=== PATIENT | female | born 1935 | race Hispanic/Latino ===

== ENCOUNTER 2023-05-23 16:58 | Inpatient (IN) | payer MEDICARE ==
[~2023-05-23] VITALS: Ht 152.4 cm; Wt 65.8 kg
[~2023-05-23 16:58] MED LIST: CARVEDILOL12.5 MG PO; FEROSUL325 MG PO; FUROSEMIDE20 MG PO; HYDROCHLOROTH12.5 MG PO; LEVOTHYROXINE50 MCG PO; LOSARTAN POTASS25 MG PO; MULTI-VITAMIN1 EACH PO; NIFEDIPINE ER30 M1 PO; PANTOPRAZOLE SO40 MG PO; POTASSIUM CHLO10 ME1 PO; SIMVASTATIN20 MG PO; SODIUM CHLORI1000 M2 PO
[2023-05-23 17:26] LABS: BASOPHILS % 0.2 % (0.0-1.0); EOSINOPHILS # (AUTO) 0.1 (0.0-0.4); EOSINOPHILS % 0.4 % (0.0-6.0); HEMATOCRIT 35.5 % (34.2-44.1); LYMPHOCYTES # (AUTO) 0.7 (1.0-3.2); LYMPHOCYTES % 4.5 % (18.0-39.1); MEAN CORPUSCULAR HEMOGLOBIN 28.9 pg (28-32); MEAN CORPUSCULAR HGB CONC 33.8 g/dL (31-35); MEAN CORPUSCULAR VOLUME 85.5 fL (81-99); MONOCYTES # (AUTO) 0.9 (0.2-0.8); MONOCYTES % 6.4 % (4.4-11.3); NEUTROPHILS # (AUTO) 12.9 (2.1-6.9); NEUTROPHILS % 88.2 % (38.7-80.0); PLATELET COUNT 242 x10e3/uL (140-360); RED BLOOD COUNT 4.15 x10e6/uL (3.6-5.1)
[2023-05-23 17:44] LABS: ALBUMIN 3.6 g/dL (3.5-5.0); ALBUMIN/GLOBULIN RATIO 0.9 (0.8-2.0); ANION GAP 19.7 mmol/L (8-16); BILIRUBIN,TOTAL 1.4 mg/dL (0.2-1.2); CALCIUM 9.6 mg/dL (8.4-10.2); CREATININE, SERUM 1.51 mg/dL (0.57-1.11); POTASSIUM 4.7 mmol/L (3.5-5.1); TOTAL PROTEIN 7.4 g/dL (6.5-8.1)
[2023-05-23 18:14] LABS: INFLUENZAE A&B ANTIGEN (RAPID) NEGATIVE (NEGATIVE); RESPIRATORY SYNC. VIRUS NEGATIVE (NEGATIVE)
[2023-05-23] MEDS: Doxycycline IV 100 MG in SODIUM CHLORIDE 0.9% 100 ML IV SCH (18:53)
[2023-05-23 19:30] VITALS: PULSE 72; RESP 20; O2SAT 96
[2023-05-23 19:55] LABS: BILIRUBIN,URINE NEGATIVE (NEGATIVE); CLARITY,URINE SL CLOUDY (CLEAR); COLOR,URINE YELLOW (YELLOW); GLUCOSE, URINE NEGATIVE (NEGATIVE); KETONES,URINE NEGATIVE (NEGATIVE); LEUKOCYTE ESTERASE ,URINE MODERATE (NEGATIVE); NITRITE,URINE NEGATIVE (NEGATIVE); PH,URINE 5.5 (5 - 7); PROTEIN,URINE DIPSTICK 1+ (NEGATIVE); URINE UROBILINOGEN 0.2 mg/dL (0.2 - 1)
[2023-05-23 20:08] LABS: AMORPHOUS SEDIMENT,URINE MODERATE (FEW); BACTERIA,URINE MODERATE /HPF; EPITHELIAL CELLS,URINE FEW /LPF
[2023-05-23] MEDS ORDERED: GUAIFENESIN/DEXTROMETHORPHAN LIQD 5 ML UDC PO PRN (20:15)
[2023-05-23] MEDS ORDERED: MAGNESIUM/ALUMINUM/SIMETHICONE 30 ML UDC PO PRN (20:15)
[2023-05-23] MEDS ORDERED: ONDANSETRON HCL INJ 2MG/ML 2ML 2 MG/ML VIAL IV PRN (20:15)
[2023-05-23] MEDS ORDERED: IPRATROPIUM BROMIDE 0.02% 2.5 ML NEB NEB PRN (20:15)
[2023-05-23 22:05] VITALS: BP 126/65; PULSE 73; RESP 17; TEMP 98.8; O2SAT 95
[2023-05-23 23:00] VITALS: BP 126/65; PULSE 73; RESP 17; TEMP 98.8; O2SAT 95
[2023-05-23 23:30] VITALS: BP 126/65; PULSE 73; RESP 17; TEMP 98.8; O2SAT 95
[2023-05-24] VITALS (10 sets, daily range): BP systolic 122–165; BP diastolic 58–73; PULSE 62–81; RESP 18–20; TEMP 97–98.4; O2SAT 93–100
[2023-05-24] MEDS: SIMVASTATIN 20 MG TAB PO SCH (00:15)
[2023-05-24] MEDS: ACETAMINOPHEN 325 MG TAB PO PRN (00:21)
[2023-05-24] MEDS: MELATONIN 3 MG TAB PO PRN (00:21)
[2023-05-24] MEDS ORDERED: AUGMENTIN 500-1 EACH PO (02:31)
[2023-05-24 05:22] LABS: BASOPHILS % 0.3 % (0.0-1.0); EOSINOPHILS # (AUTO) 0.1 (0.0-0.4); EOSINOPHILS % 0.6 % (0.0-6.0); HEMATOCRIT 31.4 % (34.2-44.1); HEMOGLOBIN 10.6 g/dL (12.0-16.0); LYMPHOCYTES # (AUTO) 0.7 (1.0-3.2); LYMPHOCYTES % 5.8 % (18.0-39.1); MEAN CORPUSCULAR HEMOGLOBIN 28.8 pg (28-32); MEAN CORPUSCULAR HGB CONC 33.8 g/dL (31-35); MEAN CORPUSCULAR VOLUME 85.3 fL (81-99); MONOCYTES % 8.5 % (4.4-11.3); NEUTROPHILS # (AUTO) 9.5 (2.1-6.9); NEUTROPHILS % 84.5 % (38.7-80.0); PLATELET COUNT 257 x10e3/uL (140-360); RED BLOOD COUNT 3.68 x10e6/uL (3.6-5.1); RED CELL DISTRIBUTION WIDTH 13.1 % (11.7-14.4); WHITE BLOOD COUNT 11.23 x10e3/uL (4.8-10.8)
[2023-05-24] MEDS: LEVOTHYROXINE SODIUM 50 MCG TAB PO SCH (05:52)
[2023-05-24 06:08] LABS: CALCIUM 8.8 mg/dL (8.4-10.2); CREATININE, SERUM 1.24 mg/dL (0.57-1.11)
[2023-05-24] MEDS ORDERED: MULTIVITAMINS/MINERALS TAB PO SCH (09:00)
[2023-05-24] MEDS: MULTIVITAMINS/MINERALS TAB PO SCH (10:19)
[2023-05-24] MEDS: FERROUS SULFATE 325 MG TAB PO SCH (10:19)
[2023-05-24] MEDS: POTASSIUM CHLORIDE 10MEQ EA PO SCH (10:19)
[2023-05-24] MEDS: SODIUM CHLORIDE 1 GM TAB PO SCH (10:19)
[2023-05-24] MEDS: FUROSEMIDE 20 MG TAB PO SCH (10:20)
[2023-05-24] MEDS: PANTOPRAZOLE SOD 40 MG TABEC PO SCH (10:20)
[2023-05-24] MEDS: CARVEDILOL 12.5 MG TAB PO SCH (10:20)
[2023-05-24] MEDS ORDERED: SODIUM CHLORIDE 0.9% 250ML 250 ML ONE (10:25)
[2023-05-24] MEDS: LACTATED RINGER'S 1,000 ML INJ ONE (17:16)
[2023-05-25] VITALS (10 sets, daily range): BP systolic 149–192; BP diastolic 52–77; PULSE 61–70; RESP 17–18; TEMP 97.6–98.4; O2SAT 97–100
[2023-05-25 05:41] LABS: BASOPHILS % 0.3 % (0.0-1.0); EOSINOPHILS # (AUTO) 0.2 (0.0-0.4); EOSINOPHILS % 2.5 % (0.0-6.0); HEMATOCRIT 36.5 % (34.2-44.1); HEMOGLOBIN 11.3 g/dL (12.0-16.0); LYMPHOCYTES # (AUTO) 0.8 (1.0-3.2); LYMPHOCYTES % 9.1 % (18.0-39.1); MEAN CORPUSCULAR HEMOGLOBIN 27.7 pg (28-32); MEAN CORPUSCULAR VOLUME 89.5 fL (81-99); MONOCYTES % 10.9 % (4.4-11.3); NEUTROPHILS # (AUTO) 6.7 (2.1-6.9); PLATELET COUNT 281 x10e3/uL (140-360); RED BLOOD COUNT 4.08 x10e6/uL (3.6-5.1); RED CELL DISTRIBUTION WIDTH 13.3 % (11.7-14.4); WHITE BLOOD COUNT 8.77 x10e3/uL (4.8-10.8)
[2023-05-25 06:18] LABS: ANION GAP 11.9 mmol/L (8-16); CALCIUM 8.7 mg/dL (8.4-10.2); CREATININE, SERUM 0.78 mg/dL (0.57-1.11); POTASSIUM 3.9 mmol/L (3.5-5.1)
[2023-05-25] MEDS ORDERED: FUROSEMIDE INJ 10 MG/ML 4 ML VIAL ONE (11:53)
[2023-05-25] MEDS: FUROSEMIDE INJ 10 MG/ML 4 ML VIAL IV ONE (11:54)
[2023-05-25] MEDS ORDERED: ONDANSETRON HCL 4 MG ORAL DISINTEGRATING TAB PO PRN (14:00)
[2023-05-25] MEDS: HYDRALAZINE HCL 20 MG/ML VIAL IV PRN (15:50)
[2023-05-25] MEDS ORDERED: AMLODIPINE BESYLATE 5 MG TAB ONE (17:52)
[2023-05-25] MEDS: AMLODIPINE BESYLATE 5 MG TAB PO ONE (18:00)
[2023-05-26] VITALS (7 sets, daily range): BP systolic 103–154; BP diastolic 44–68; PULSE 62–90; RESP 18–20; TEMP 97.1–98.6; O2SAT 97–100
[2023-05-26 07:59] LABS: ANION GAP 15.6 mmol/L (8-16); CALCIUM 8.5 mg/dL (8.4-10.2); CREATININE, SERUM 0.74 mg/dL (0.57-1.11); POTASSIUM 3.6 mmol/L (3.5-5.1)
[2023-05-26] MEDS: AMLODIPINE BESYLATE 5 MG TAB PO SCH (09:51)
[2023-05-26] MEDS: FUROSEMIDE INJ 10 MG/ML 4 ML VIAL IV SCH (09:51)
[2023-05-26] MEDS ORDERED: AMLODIPINE BESYLATE 5 MG TAB ONE (09:52)
[2023-05-26] MEDS ORDERED: FUROSEMIDE INJ 10 MG/ML 4 ML VIAL ONE (09:52)
[2023-05-27] VITALS (8 sets, daily range): BP systolic 122–165; BP diastolic 56–74; PULSE 58–86; RESP 16–20; TEMP 97–99.1; O2SAT 96–100
[2023-05-27 08:27] LABS: ANION GAP 14.7 mmol/L (8-16); CREATININE, SERUM 0.74 mg/dL (0.57-1.11); MAGNESIUM 1.8 MG/DL (1.3-2.1); POTASSIUM 3.7 mmol/L (3.5-5.1)
[2023-05-27] MEDS ORDERED: FUROSEMIDE INJ 10 MG/ML 4 ML VIAL ONE (09:04)
[2023-05-27] MEDS: DOCUSATE SODIUM 100 MG CAP PO PRN (11:19)
[2023-05-27] MEDS ORDERED: AMLODIPINE BESYLATE 5 MG TAB ONE (11:26)
[2023-05-28] VITALS (11 sets, daily range): BP systolic 132–159; BP diastolic 51–92; PULSE 54–82; RESP 17–20; TEMP 97.8–98.4; O2SAT 92–100
[2023-05-28] MEDS ORDERED: MULTIVITAMINS/MINERALS TAB ONE (10:18)
[2023-05-28] MEDS ORDERED: AMLODIPINE BESYLATE 5 MG TAB ONE (10:18)
[2023-05-28] MEDS ORDERED: SODIUM CHLORIDE 0.9% INJ 100 ML BAG ONE (10:18)
[2023-05-28] MEDS ORDERED: CEFEPIME HCL 1 GM VIAL ONE (10:18)
[2023-05-28] MEDS ORDERED: Doxycycline IV 100 MG Vial IV ONE (10:18)
[2023-05-28] MEDS ORDERED: SIMVASTATIN 20 MG TAB ONE (10:18)
[2023-05-28] MEDS ORDERED: Sodium Chloride 0.9% 50ML Bag ONE (10:18)
[2023-05-28] MEDS ORDERED: CARVEDILOL 12.5 MG TAB ONE (10:18)
[2023-05-28] MEDS ORDERED: LEVOTHYROXINE SODIUM 50 MCG TAB ONE (10:18)
[2023-05-28] MEDS ORDERED: FERROUS SULFATE 325 MG TAB ONE (10:18)
[2023-05-28] MEDS ORDERED: PANTOPRAZOLE SOD 40 MG TABEC ONE (10:18)
[2023-05-28] MEDS ORDERED: SODIUM CHLORIDE 1 GM TAB ONE (10:18)
[2023-05-28] MEDS ORDERED: FUROSEMIDE INJ 10 MG/ML 4 ML VIAL ONE (10:18)
[2023-05-28] MEDS ORDERED: SIMVASTATIN20 MG PO (12:15)
[2023-05-28] MEDS ORDERED: LASIX20 MG PO (12:15)
[2023-05-28] MEDS ORDERED: AUGMENTIN 500-1 EACH PO (12:15)
[2023-05-28] MEDS: POTASSIUM CHLORIDE 20 MEQ TAB CR PO ONE (15:19)
[2023-05-29] VITALS: BP 143/60; PULSE 56; RESP 17; TEMP 97.9; O2SAT 100
[2023-05-29 04:00] VITALS: BP 155/58; PULSE 61; RESP 17; TEMP 98.2; O2SAT 100
[2023-05-29] MEDS ORDERED: FUROSEMIDE INJ 10 MG/ML 4 ML VIAL ONE ×2 (08:00→09:09)
[2023-05-29] MEDS ORDERED: AMLODIPINE BESYLATE 5 MG TAB ONE ×2 (08:00→09:09)
[2023-05-29] MEDS ORDERED: Doxycycline IV 100 MG Vial IV ONE (09:09)
[2023-05-29] MEDS ORDERED: SODIUM CHLORIDE 1 GM TAB ONE (09:09)
[2023-05-29] MEDS ORDERED: FERROUS SULFATE 325 MG TAB ONE (09:09)
[2023-05-29] MEDS ORDERED: SODIUM CHLORIDE 0.9% INJ 100 ML BAG ONE (09:09)
[2023-05-29] MEDS ORDERED: CEFEPIME HCL 1 GM VIAL ONE (09:09)
[2023-05-29] MEDS ORDERED: CARVEDILOL 12.5 MG TAB ONE (09:09)
[2023-05-29] MEDS ORDERED: Sodium Chloride 0.9% 50ML Bag ONE (09:09)
[2023-05-29] MEDS ORDERED: PANTOPRAZOLE SOD 40 MG TABEC ONE (09:09)
[2023-05-29] MEDS ORDERED: MULTIVITAMINS/MINERALS TAB ONE (09:09)
[2023-05-29] MEDS ORDERED: SIMVASTATIN 20 MG TAB ONE (09:09)
[2023-05-29] MEDS ORDERED: LEVOTHYROXINE SODIUM 50 MCG TAB ONE (09:09)
[2023-05-29 09:38] VITALS: BP 164/61; PULSE 61; RESP 21; TEMP 98.2; O2SAT 100
[2023-05-29 11:13] VITALS: PULSE 68; RESP 18; O2SAT 91
[2023-05-29 12:21] VITALS: BP 128/59; PULSE 57; RESP 19; TEMP 98.4; O2SAT 100
[2023-05-29] MEDS ORDERED: DOXYCYCLINE HYCLATE TABLET 100 MG TAB PO SCH (18:00)
[2023-05-30] MEDS ORDERED: FUROSEMIDE 40 MG TAB PO SCH (09:00)
== END 2023-05-29 16:01 | disposition home health service (06) | DRG 177 ==
LOC: ER 17:10 → ERHOLD 18:07 → MED/SURG3 21:09 → OBSVTOIN 05-24 11:12
PROVIDERS: ADMIT Internal Medicine; ATTEND Internal Medicine
DX: J69.0 Pneumonitis due to inhalation of food and vomit (principal); I50.33 Acute on chronic diastolic (congestive) heart failure; N17.9 Acute kidney failure, unspecified; N39.0 Urinary tract infection, site not specified; E87.1 Hypo-osmolality and hyponatremia; E03.9 Hypothyroidism, unspecified; K21.9 Gastro-esophageal reflux disease without esophagitis; E78.5 Hyperlipidemia, unspecified; M19.90 Unspecified osteoarthritis, unspecified site; Z87.891 Personal history of nicotine dependence; S00.83XD Contusion of other part of head, subsequent encounter; F03.90 Unspecified dementia, unspecified severity, without behavioral disturbance, psychotic disturbance, mood disturbance, and anxiety; Z87.440 Personal history of urinary (tract) infections; Z79.890 Hormone replacement therapy; Z11.52 Encounter for screening for COVID-19; J45.909 Unspecified asthma, uncomplicated; I11.0 Hypertensive heart disease with heart failure
CPT/HCPCS: 36415; 71045; 76604; 76770; 80048; 80053; 81001; 83605; 83735; 83880; 84484; 85025; 87040; 87086; 87400; 87420; 93005; 94799; 99284; G0378; J0360; J0692; J0696; J1940; J7050; U0002

== ENCOUNTER 2024-09-23 12:22 | Inpatient (IN) | payer MEDICARE ==
[2024-09-23] VITALS (7 sets, daily range): BP systolic 132–155; BP diastolic 54–64; PULSE 91–96; RESP 16–18; TEMP 97.6–99.6; O2SAT 98–100
[~2024-09-23] VITALS: Ht 152.4 cm; Wt 65.8 kg
[~2024-09-23 12:22] MED LIST changes: +AUGMENTIN 500-1 EACH PO; +LASIX20 MG PO
[2024-09-23] MEDS ORDERED: HYOSCYAMINE SULFATE 0.5 MG/ML INJ ONE (12:55)
[2024-09-23 13:36] LABS: BASOPHILS % 0.0 % (0.0-1.0); EOSINOPHILS % 0.0 % (0.0-6.0); LYMPHOCYTES % 7.3 % (18.0-39.1); MONOCYTES % 2.1 % (4.4-11.3); NEUTROPHILS % 90.0 % (38.7-80.0); RED CELL DISTRIBUTION WIDTH 15.7 % (11.7-14.4)
[2024-09-23 13:53] LABS: INR 1.04
[2024-09-23] MEDS: SODIUM CHLORIDE 0.9% 1000ML 1,000 ML IV ONE (13:59)
[2024-09-23 14:02] LABS: EST GLOMERULAR FILTRATION RATE 45.0 ML/MIN (>=60)
[2024-09-23] MEDS ORDERED: IOPAMIDOL 370 MG/ML 100 ML INFUS..BTL INJ ONE (14:08)
[2024-09-23] MEDS ORDERED: SODIUM CHLORIDE 0.9% 100 ML ONE (14:08)
[2024-09-23 15:18] LABS: LEUKOCYTE ESTERASE ,URINE NEGATIVE (NEGATIVE); PROTEIN,URINE DIPSTICK NEGATIVE (NEGATIVE); URINE UROBILINOGEN 0.2 mg/dL (0.2 - 1)
[2024-09-23] MEDS: SODIUM CHLORIDE 0.9% 250ML 250 ML IV ONE (15:32)
[2024-09-23] MEDS: SODIUM CHLORIDE 0.9% 1000ML 1,000 ML IV SCH (17:20)
[2024-09-23] MEDS: SODIUM CHLORIDE 0.9% 250ML 250 ML ONE ×2 (17:21→23:28)
[2024-09-24] VITALS (43 sets, daily range): BP systolic 74–166; BP diastolic 45–103; PULSE 78–127; RESP 13–24; TEMP 97.4–99.3; O2SAT 94–100
[2024-09-24 00:30] LABS: % IRON SATURATION 21 % (15-50)
[2024-09-24 05:33] LABS: BASOPHILS % 0.2 % (0.0-1.0); EOSINOPHILS % 0.0 % (0.0-6.0); LYMPHOCYTES % 9.3 % (18.0-39.1); MONOCYTES % 9.3 % (4.4-11.3); NEUTROPHILS % 79.7 % (38.7-80.0); RED CELL DISTRIBUTION WIDTH 14.6 % (11.7-14.4)
[2024-09-24 06:03] LABS: EST GLOMERULAR FILTRATION RATE 65.0 ML/MIN (>=60)
[2024-09-24] MEDS: NOREPINEPHRINE 8 MG/D5W 250 ML 250 ML ONE (08:20)
[2024-09-24 08:51] LABS: BASOPHILS % 0.1 % (0.0-1.0); EOSINOPHILS % 0.0 % (0.0-6.0); LYMPHOCYTES % 9.9 % (18.0-39.1); MONOCYTES % 6.9 % (4.4-11.3); NEUTROPHILS % 82.2 % (38.7-80.0); RED CELL DISTRIBUTION WIDTH 14.8 % (11.7-14.4)
[2024-09-24] MEDS: SODIUM CHLORIDE 0.9% 250ML 250 ML IV ONE ×2 (11:00→23:47)
[2024-09-24] MEDS ORDERED: OCTREOTIDE ACETATE 0.05 MG in SODIUM CHLORIDE 0.9% 250ML 250 ML IV SCH (12:30)
[2024-09-24] MEDS ORDERED: SODIUM CHLORIDE 0.9% IV SCH (12:30)
[2024-09-24] MEDS ORDERED: OCTREOTIDE ACETATE 0.05 MG/ML AMP IV SCH (12:30)
[2024-09-24] MEDS ORDERED: OCTREOTIDE ACETATE IV SCH (12:30)
[2024-09-24] MEDS: CYANOCOBALAMIN INJ 1,000 MCG/ML VIAL IM ONE (12:37)
[2024-09-24] MEDS: OCTREOTIDE ACETATE 0.05 MG/ML AMP IV ONE (14:15)
[2024-09-24] MEDS: OCTREOTIDE ACETATE 500 MCG in SODIUM CHLORIDE 0.9% 250ML 250 ML IV SCH (14:27)
[2024-09-24 17:16] LABS: BASOPHILS % 0.1 % (0.0-1.0); EOSINOPHILS % 0.0 % (0.0-6.0); LYMPHOCYTES % 4.4 % (18.0-39.1); MONOCYTES % 3.6 % (4.4-11.3); NEUTROPHILS % 91.2 % (38.7-80.0); RED CELL DISTRIBUTION WIDTH 15.3 % (11.7-14.4)
[2024-09-24 17:29] LABS: INR 1.3
[2024-09-24] MEDS: SIMVASTATIN 20 MG TAB PO SCH (21:00)
[2024-09-25] VITALS (54 sets, daily range): BP systolic 117–204; BP diastolic 48–136; PULSE 74–97; RESP 14–27; TEMP 97.7–98.9; O2SAT 96–100
[2024-09-25] MEDS: ACETAMINOPHEN 325 MG TAB PO PRN (02:00)
[2024-09-25 03:42] LABS: BASOPHILS % 0.1 % (0.0-1.0); EOSINOPHILS % 0.0 % (0.0-6.0); LYMPHOCYTES % 5.8 % (18.0-39.1); MONOCYTES % 6.6 % (4.4-11.3); NEUTROPHILS % 86.6 % (38.7-80.0); RED CELL DISTRIBUTION WIDTH 14.6 % (11.7-14.4)
[2024-09-25] MEDS: SODIUM CHLORIDE 0.9% 250ML 250 ML IV PRN (03:49)
[2024-09-25] MEDS: LEVOTHYROXINE SODIUM 50 MCG TAB PO SCH (06:02)
[2024-09-25] MEDS: LOSARTAN POTASSIUM 100 MG TAB PO SCH (06:46)
[2024-09-25] MEDS: CARVEDILOL 12.5 MG TAB PO SCH (06:47)
[2024-09-25] MEDS: FUROSEMIDE INJ 10 MG/ML 2 ML VIAL IV PRN (07:00)
[2024-09-25 07:33] LABS: BASOPHILS % 0.1 % (0.0-1.0); EOSINOPHILS % 0.0 % (0.0-6.0); LYMPHOCYTES % 6.4 % (18.0-39.1); MONOCYTES % 7.1 % (4.4-11.3); NEUTROPHILS % 85.7 % (38.7-80.0); RED CELL DISTRIBUTION WIDTH 15.1 % (11.7-14.4)
[2024-09-25 08:02] LABS: EST GLOMERULAR FILTRATION RATE 44.0 ML/MIN (>=60)
[2024-09-25] MEDS: CYANOCOBALAMIN INJ 1,000 MCG/ML VIAL IM SCH (09:34)
[2024-09-25] MEDS ORDERED: PHYTONADIONE 10 MG/ML AMP IV ONE (11:30)
[2024-09-25] MEDS: PHYTONADIONE 10MG/ML INJ 20 MG in Sodium Chloride 0.9% 50ML 50 ML IV ONE (12:05)
[2024-09-25] MEDS: TRANEXAMIC ACID IV SCH (13:49)
[2024-09-25] MEDS: SODIUM CHLORIDE 0.9% IV SCH (13:49)
[2024-09-25 14:29] LABS: BASOPHILS % 0.1 % (0.0-1.0); EOSINOPHILS % 0.1 % (0.0-6.0); LYMPHOCYTES % 7.0 % (18.0-39.1); MONOCYTES % 7.8 % (4.4-11.3); NEUTROPHILS % 84.3 % (38.7-80.0); RED CELL DISTRIBUTION WIDTH 15.1 % (11.7-14.4)
[2024-09-25] MEDS: HYDRALAZINE HCL 20 MG/ML VIAL IV PRN (15:54)
[2024-09-25] MEDS ORDERED: TRANEXAMIC ACID 1,000 MG/10 ML ML IV SCH (17:00)
[2024-09-25] MEDS ORDERED: SODIUM CHLORIDE 0.9% 100 ML ONE (19:27)
[2024-09-25] MEDS ORDERED: IOPAMIDOL 370 MG/ML 100 ML INFUS..BTL INJ ONE (19:27)
[2024-09-25 19:59] LABS: INR 1.14
[2024-09-25] MEDS: PHYTONADIONE 10MG/ML INJ 20 MG in SODIUM CHLORIDE 0.9% 100 ML IV ONE (21:21)
[2024-09-25] MEDS: DESMOPRESSIN ACETATE 4 MCG/ML VIAL IV STA (21:52)
[2024-09-26] VITALS (28 sets, daily range): BP systolic 100–170; BP diastolic 40–98; PULSE 71–88; RESP 13–28; TEMP 97.4–98.3; O2SAT 94–100
[2024-09-26] MEDS: CITRATE OF MAGNESIA 300ML BOTTLE PO ONE ×2 (05:17→10:00)
[2024-09-26 06:09] LABS: BASOPHILS % 0.1 % (0.0-1.0); EOSINOPHILS % 0.7 % (0.0-6.0); LYMPHOCYTES % 6.1 % (18.0-39.1); MONOCYTES % 6.5 % (4.4-11.3); NEUTROPHILS % 86.0 % (38.7-80.0); RED CELL DISTRIBUTION WIDTH 15.8 % (11.7-14.4)
[2024-09-26 07:00] LABS: EST GLOMERULAR FILTRATION RATE 68.0 ML/MIN (>=60)
[2024-09-26] MEDS: SODIUM CHLORIDE 0.9% 250ML 250 ML IV ONE (12:15)
[2024-09-26] MEDS ORDERED: DESMOPRESSIN ACETATE 4 MCG/ML VIAL IV STA (12:22)
[2024-09-26] MEDS ORDERED: PROPOFOL IV EMULSION 10 MG/ML 20 ML VIAL ONE (15:17)
[2024-09-26] MEDS ORDERED: LIDOCAINE HCL 2% LOCAL INJ 5 ML SDV VIAL INJ ONE (15:17)
[2024-09-26] MEDS ORDERED: FENTANYL CITRATE/PF 100MCG/2 ML INJ ONE (15:17)
[2024-09-27] VITALS (24 sets, daily range): BP systolic 90–177; BP diastolic 44–135; PULSE 45–106; RESP 14–25; TEMP 97.4–98.4; O2SAT 90–100
[2024-09-27 10:25] LABS: BASOPHILS % 0.1 % (0.0-1.0); EOSINOPHILS % 3.6 % (0.0-6.0); LYMPHOCYTES % 4.8 % (18.0-39.1); MONOCYTES % 7.8 % (4.4-11.3); NEUTROPHILS % 82.8 % (38.7-80.0); RED CELL DISTRIBUTION WIDTH 15.0 % (11.7-14.4)
[2024-09-27] MEDS: TRANEXAMIC ACID IV SCH (10:34)
[2024-09-27] MEDS: SODIUM CHLORIDE 0.9% IV SCH (10:34)
[2024-09-27 10:59] LABS: EOSINOPHILS % (MANUAL) 2 % (0-7); LYMPHOCYTES % (MANUAL) 8 % (19-48); MONOCYTES % (MANUAL) 1 % (3.4-9.0); NEUTROPHILS % (MANUAL) 89 % (40-74)
[2024-09-27 11:00] LABS: PLATELET ESTIMATE SLIGHTLY DECREASED; PLATELET MORPHOLOGY COMMENT NORMAL
[2024-09-27 11:06] LABS: EST GLOMERULAR FILTRATION RATE 85.0 ML/MIN (>=60)
[2024-09-27] MEDS: POTASSIUM CHLORIDE 20MEQ/100ML 200 ML IV ONE (12:20)
[2024-09-27] MEDS: FUROSEMIDE INJ 10 MG/ML 2 ML VIAL IV ONE (12:20)
[2024-09-28] VITALS (25 sets, daily range): BP systolic 114–186; BP diastolic 50–99; PULSE 51–79; RESP 15–22; TEMP 98.1–99; O2SAT 96–100
[2024-09-28] MEDS: FUROSEMIDE INJ 10 MG/ML 2 ML VIAL IV ONE (01:50)
[2024-09-28 06:46] LABS: BASOPHILS % 0.2 % (0.0-1.0); EOSINOPHILS % 4.2 % (0.0-6.0); LYMPHOCYTES % 5.8 % (18.0-39.1); MONOCYTES % 8.7 % (4.4-11.3); NEUTROPHILS % 80.5 % (38.7-80.0); RED CELL DISTRIBUTION WIDTH 14.2 % (11.7-14.4)
[2024-09-28 06:55] LABS: EST GLOMERULAR FILTRATION RATE 86.0 ML/MIN (>=60)
[2024-09-28] MEDS: POTASSIUM CHLORIDE 20 MEQ TAB CR PO STA (09:39)
[2024-09-28] MEDS: POTASSIUM CHLORIDE 20 MEQ TAB CR PO ONE (17:11)
[2024-09-29] VITALS (12 sets, daily range): BP systolic 163–188; BP diastolic 50–65; PULSE 55–62; RESP 16–19; TEMP 97.4–98.6; O2SAT 100
[2024-09-29] MEDS: ONDANSETRON HCL INJ 2MG/ML 2ML 2 MG/ML VIAL IV PRN (01:22)
[2024-09-29 05:38] LABS: BASOPHILS % 0.2 % (0.0-1.0); EOSINOPHILS % 5.1 % (0.0-6.0); LYMPHOCYTES % 5.6 % (18.0-39.1); MONOCYTES % 9.0 % (4.4-11.3); NEUTROPHILS % 79.6 % (38.7-80.0); RED CELL DISTRIBUTION WIDTH 13.8 % (11.7-14.4)
[2024-09-29 06:17] LABS: EST GLOMERULAR FILTRATION RATE 85.0 ML/MIN (>=60)
[2024-09-30] VITALS (8 sets, daily range): BP systolic 108–180; BP diastolic 53–100; PULSE 56–67; RESP 18–21; TEMP 97.1–98.5; O2SAT 98–100
[2024-09-30] MEDS ORDERED: ALBUTEROL SULF 0.083% NEB SOLN 3 ML NEB NEB PRN (07:00)
[2024-09-30 09:57] LABS: BASOPHILS % 0.4 % (0.0-1.0); EOSINOPHILS % 4.4 % (0.0-6.0); LYMPHOCYTES % 5.6 % (18.0-39.1); MONOCYTES % 6.8 % (4.4-11.3); NEUTROPHILS % 82.4 % (38.7-80.0); RED CELL DISTRIBUTION WIDTH 13.7 % (11.7-14.4)
[2024-09-30] MEDS: SODIUM CHLORIDE 0.9% 250ML 250 ML ONE (09:57)
[2024-09-30] MEDS: FUROSEMIDE INJ 10 MG/ML 4 ML VIAL IV ONE (10:01)
[2024-10-01] VITALS (12 sets, daily range): BP systolic 123–172; BP diastolic 52–65; PULSE 53–69; RESP 16–19; TEMP 97.3–98.2; O2SAT 96–100
[2024-10-01] MEDS: FUROSEMIDE INJ 10 MG/ML 4 ML VIAL IV SCH (21:40)
[2024-10-02] VITALS (8 sets, daily range): BP systolic 113–172; BP diastolic 52–58; PULSE 52–65; RESP 18; TEMP 97.4–97.9; O2SAT 86–100
[2024-10-03] VITALS (13 sets, daily range): BP systolic 108–171; BP diastolic 54–60; PULSE 57–73; RESP 18–22; TEMP 97.9–98.4; O2SAT 95–100
[2024-10-03 06:06] LABS: BASOPHILS % 0.5 % (0.0-1.0); EOSINOPHILS % 3.7 % (0.0-6.0); LYMPHOCYTES % 15.7 % (18.0-39.1); MONOCYTES % 9.8 % (4.4-11.3); NEUTROPHILS % 69.8 % (38.7-80.0); RED CELL DISTRIBUTION WIDTH 13.6 % (11.7-14.4)
[2024-10-03 07:00] LABS: EST GLOMERULAR FILTRATION RATE 77.0 ML/MIN (>=60)
[2024-10-03] MEDS: FUROSEMIDE INJ 10 MG/ML 4 ML VIAL IV SCH (10:23)
[2024-10-03] MEDS: POTASSIUM CHLORIDE 20 MEQ TAB CR PO SCH (10:45)
[2024-10-04] VITALS (10 sets, daily range): BP systolic 110–174; BP diastolic 50–78; PULSE 54–74; RESP 17–21; TEMP 97.1–98.8; O2SAT 96–100
[2024-10-04 07:19] LABS: BASOPHILS % 0.2 % (0.0-1.0); EOSINOPHILS % 2.3 % (0.0-6.0); LYMPHOCYTES % 20.1 % (18.0-39.1); MONOCYTES % 9.6 % (4.4-11.3); NEUTROPHILS % 67.4 % (38.7-80.0); RED CELL DISTRIBUTION WIDTH 13.8 % (11.7-14.4)
[2024-10-04 08:17] LABS: EST GLOMERULAR FILTRATION RATE 70.0 ML/MIN (>=60)
[2024-10-05] VITALS (10 sets, daily range): BP systolic 117–164; BP diastolic 55–64; PULSE 54–71; RESP 16–19; TEMP 97.2–98.4; O2SAT 97–98
[2024-10-05 09:32] LABS: BASOPHILS % 0.3 % (0.0-1.0); EOSINOPHILS % 2.5 % (0.0-6.0); LYMPHOCYTES % 16.4 % (18.0-39.1); MONOCYTES % 6.3 % (4.4-11.3); NEUTROPHILS % 74.4 % (38.7-80.0); RED CELL DISTRIBUTION WIDTH 13.9 % (11.7-14.4)
[2024-10-05 09:41] LABS: EST GLOMERULAR FILTRATION RATE 65.0 ML/MIN (>=60)
[2024-10-06] VITALS (7 sets, daily range): BP systolic 70–163; BP diastolic 65–78; PULSE 51–78; RESP 17–19; TEMP 97.6–98.4; O2SAT 96–99
== END 2024-10-06 13:40 | DRG 377 ==
LOC: ER 12:28 → ERHOLD 16:05 → MED/SURG 17:13 → ICU 09-24 07:58 → MED/SURG 09-28 20:07
PROVIDERS: ADMIT Internal Medicine; ATTEND Internal Medicine
PROC: 30233N1 Transfusion of Nonautologous Red Blood Cells into Peripheral Vein, Percutaneous Approach (ICD-10-PCS; principal; 2024-09-23)
PROC: 30233N1 Transfusion of Nonautologous Red Blood Cells into Peripheral Vein, Percutaneous Approach (ICD-10-PCS; 2024-09-23)
PROC: 02HV33Z Insertion of Infusion Device into Superior Vena Cava, Percutaneous Approach (ICD-10-PCS; 2024-09-23)
PROC: B548ZZA Ultrasonography of Superior Vena Cava, Guidance (ICD-10-PCS; 2024-09-23)
PROC: 30233N1 Transfusion of Nonautologous Red Blood Cells into Peripheral Vein, Percutaneous Approach (ICD-10-PCS; 2024-09-24)
PROC: 30233N1 Transfusion of Nonautologous Red Blood Cells into Peripheral Vein, Percutaneous Approach (ICD-10-PCS; 2024-09-24)
PROC: 30233N1 Transfusion of Nonautologous Red Blood Cells into Peripheral Vein, Percutaneous Approach (ICD-10-PCS; 2024-09-24)
PROC: 30233K1 Transfusion of Nonautologous Frozen Plasma into Peripheral Vein, Percutaneous Approach (ICD-10-PCS; 2024-09-24)
PROC: 30233K1 Transfusion of Nonautologous Frozen Plasma into Peripheral Vein, Percutaneous Approach (ICD-10-PCS; 2024-09-25)
PROC: 30233K1 Transfusion of Nonautologous Frozen Plasma into Peripheral Vein, Percutaneous Approach (ICD-10-PCS; 2024-09-25)
PROC: 3E033XZ Introduction of Vasopressor into Peripheral Vein, Percutaneous Approach (ICD-10-PCS; 2024-09-26)
PROC: 0DJD8ZZ Inspection of Lower Intestinal Tract, Via Natural or Artificial Opening Endoscopic (ICD-10-PCS; 2024-09-26)
PROC: 30233N1 Transfusion of Nonautologous Red Blood Cells into Peripheral Vein, Percutaneous Approach (ICD-10-PCS; 2024-09-26)
DX: K57.31 Diverticulosis of large intestine without perforation or abscess with bleeding (principal); I50.31 Acute diastolic (congestive) heart failure; J96.01 Acute respiratory failure with hypoxia; R57.8 Other shock; D62 Acute posthemorrhagic anemia; N17.9 Acute kidney failure, unspecified; J98.11 Atelectasis; I11.0 Hypertensive heart disease with heart failure; E87.8 Other disorders of electrolyte and fluid balance, not elsewhere classified; E78.5 Hyperlipidemia, unspecified; R73.9 Hyperglycemia, unspecified; K21.9 Gastro-esophageal reflux disease without esophagitis; N31.9 Neuromuscular dysfunction of bladder, unspecified; E53.8 Deficiency of other specified B group vitamins; E03.9 Hypothyroidism, unspecified; E87.6 Hypokalemia; R19.7 Diarrhea, unspecified; R53.81 Other malaise; R33.9 Retention of urine, unspecified; D72.829 Elevated white blood cell count, unspecified; R62.7 Adult failure to thrive; Z68.28 Body mass index [BMI] 28.0-28.9, adult; Z71.3 Dietary counseling and surveillance; M19.91 Primary osteoarthritis, unspecified site; Z90.49 Acquired absence of other specified parts of digestive tract; Z87.440 Personal history of urinary (tract) infections; Z93.59 Other cystostomy status; Z79.01 Long term (current) use of anticoagulants
CPT/HCPCS: 36415; 36569; 45378; 70450; 71045; 74174; 80048; 80053; 81001; 82607; 82746; 83540; 83690; 84466; 84484; 85014; 85018; 85025; 85045; 85610; 85730; 86850; 86900; 86920; 93005; 93306; 94799; 99252; 99284; J0360; J1938; J1980; J2003; J2353; J2354; J2405; J2470; J2543; J3420; J3430; J3480; J7030; J7050; P9016; P9017; Q9967

== ENCOUNTER 2024-10-30 20:44 | Inpatient (IN) | payer MEDICARE ==
[~2024-10-30] VITALS: Ht 149.9 cm; Wt 52.2 kg
[2024-10-30 21:08] VITALS: TEMP 98.1
[2024-10-30] MEDS: SODIUM CHLORIDE 0.9% 1000ML 1,000 ML IV STA (22:13)
[2024-10-30 22:14] LABS: BASOPHILS % 0.2 % (0.0-1.0); EOSINOPHILS % 0.9 % (0.0-6.0); LYMPHOCYTES % 6.9 % (18.0-39.1); MONOCYTES % 7.8 % (4.4-11.3); NEUTROPHILS % 83.8 % (38.7-80.0); RED CELL DISTRIBUTION WIDTH 14.8 % (11.7-14.4)
[2024-10-30 22:36] LABS: EST GLOMERULAR FILTRATION RATE 33.0 ML/MIN (>=60)
[2024-10-30 22:52] LABS: AMPHETAMINES SCREEN,URINE NEGATIVE (NEGATIVE); CANNABINOIDS SCREEN,URINE NEGATIVE (NEGATIVE); COCAINE SCREEN,URINE NEGATIVE (NEGATIVE); METHADONE SCREEN, URINE NEGATIVE (NEGATIVE); OPIATES SCREEN,URINE NEGATIVE (NEGATIVE)
[2024-10-31] VITALS (12 sets, daily range): BP systolic 109–156; BP diastolic 50–65; PULSE 61–78; RESP 16–20; TEMP 97.5–97.9; O2SAT 97–100
[2024-10-31 01:14] LABS: LEUKOCYTE ESTERASE ,URINE 1+ (NEGATIVE); PROTEIN,URINE DIPSTICK 1+ (NEGATIVE); URINE UROBILINOGEN 0.2 mg/dL (0.2 - 1)
[2024-10-31 01:21] LABS: EPITHELIAL CELLS,URINE FEW /LPF; WBC,URINE (MAN) 21-50 /HPF (0-5)
[2024-10-31] MEDS: SODIUM CHLORIDE 0.9% 1000ML 1,000 ML IV SCH (02:30)
[2024-10-31] MEDS: Morphine 2mg Syringe 2 MG/ML SYR IV PRN (03:53)
[2024-10-31] MEDS: ONDANSETRON HCL INJ 2MG/ML 2ML 2 MG/ML VIAL IV PRN (10:38)
[2024-10-31] MEDS ORDERED: FUROSEMIDE40 MG PO (18:51)
[2024-10-31] MEDS ORDERED: SIMVASTATIN20 MG PO (18:51)
[2024-10-31] MEDS ORDERED: OXYBUTYNIN CHLOR5 MG PO (18:51)
[2024-10-31] MEDS ORDERED: FLUCONAZOLE100 MG PO (18:51)
[2024-11-01] VITALS (9 sets, daily range): BP systolic 116–187; BP diastolic 51–82; PULSE 60–84; RESP 16–21; TEMP 97.4–98.6; O2SAT 95–100
[2024-11-01 05:48] LABS: BASOPHILS % 0.1 % (0.0-1.0); EOSINOPHILS % 2.2 % (0.0-6.0); LYMPHOCYTES % 15.3 % (18.0-39.1); MONOCYTES % 10.1 % (4.4-11.3); NEUTROPHILS % 71.9 % (38.7-80.0); RED CELL DISTRIBUTION WIDTH 15.3 % (11.7-14.4)
[2024-11-01 06:16] LABS: EST GLOMERULAR FILTRATION RATE 51.0 ML/MIN (>=60)
[2024-11-01] MEDS: LEVOTHYROXINE SODIUM 88 MCG TAB PO SCH (06:21)
[2024-11-01] MEDS: PANTOPRAZOLE SOD 40 MG TABEC PO SCH (06:21)
[2024-11-01 06:49] LABS: % IRON SATURATION 6.0 % (15-50)
[2024-11-01] MEDS: FERROUS SULFATE 325 MG TAB PO SCH (18:08)
[2024-11-01] MEDS: ACETAMINOPHEN 325 MG TAB PO PRN (18:08)
[2024-11-02] VITALS (9 sets, daily range): BP systolic 121–185; BP diastolic 62–81; PULSE 60–92; RESP 16–19; TEMP 97.3–98.3; O2SAT 95–100
[2024-11-02 08:59] LABS: BASOPHILS % 0.3 % (0.0-1.0); EOSINOPHILS % 2.8 % (0.0-6.0); LYMPHOCYTES % 17.0 % (18.0-39.1); MONOCYTES % 6.9 % (4.4-11.3); NEUTROPHILS % 72.6 % (38.7-80.0); RED CELL DISTRIBUTION WIDTH 14.6 % (11.7-14.4)
[2024-11-02 09:28] LABS: EST GLOMERULAR FILTRATION RATE 74.0 ML/MIN (>=60)
[2024-11-02] MEDS ORDERED: POLYETHYLENE GLYCOL 3350 17 GM PACK PO PRN (21:00)
[2024-11-02] MEDS: SIMVASTATIN 20 MG TAB PO SCH (21:22)
[2024-11-02] MEDS: HYDRALAZINE HCL 20 MG/ML VIAL IV PRN (21:22)
[2024-11-03] VITALS (12 sets, daily range): BP systolic 121–174; BP diastolic 52–62; PULSE 55–85; RESP 16–20; TEMP 97.6–98.4; O2SAT 95–100
[2024-11-03] MEDS: CARVEDILOL 3.125 MG TAB PO SCH (09:00)
[2024-11-03] MEDS: ASCORBIC ACID 500 MG TAB PO SCH (09:47)
[2024-11-03] MEDS: CARVEDILOL 12.5 MG TAB PO SCH (09:47)
[2024-11-03] MEDS: DOCUSATE SODIUM 100 MG CAP PO SCH (09:47)
[2024-11-03] MEDS ORDERED: ONDANSETRON HCL 4 MG ORAL DISINTEGRATING TAB PO PRN (15:00)
[2024-11-04] VITALS (9 sets, daily range): BP systolic 129–189; BP diastolic 54–64; PULSE 55–72; RESP 16–25; TEMP 97.6–98.1; O2SAT 99–100
[2024-11-05] VITALS (7 sets, daily range): BP systolic 133–190; BP diastolic 57–76; PULSE 60–70; RESP 16–20; TEMP 97.5–98; O2SAT 98–100
[2024-11-06] VITALS (9 sets, daily range): BP systolic 133–163; BP diastolic 49–66; PULSE 58–76; RESP 16–20; TEMP 97.4–98.2; O2SAT 96–100
[2024-11-06 05:51] LABS: BASOPHILS % 0.2 % (0.0-1.0); EOSINOPHILS % 2.3 % (0.0-6.0); LYMPHOCYTES % 15.8 % (18.0-39.1); MONOCYTES % 6.9 % (4.4-11.3); NEUTROPHILS % 74.4 % (38.7-80.0); RED CELL DISTRIBUTION WIDTH 14.6 % (11.7-14.4)
[2024-11-06 06:15] LABS: EST GLOMERULAR FILTRATION RATE 74.0 ML/MIN (>=60)
[2024-11-07 03:55] VITALS: BP 173/56; PULSE 57; RESP 18; TEMP 98.1; O2SAT 100
[2024-11-07 08:41] VITALS: BP 185/66; PULSE 61; RESP 18; TEMP 97.9; O2SAT 100
[2024-11-07 12:21] VITALS: BP 175/65; PULSE 71; RESP 18; TEMP 97.9; O2SAT 100
[2024-11-07 16:19] VITALS: BP 160/62; PULSE 72; RESP 18; TEMP 97.9; O2SAT 100
[2024-11-07] MEDS: CARVEDILOL 3.125 MG TAB PO SCH (16:40)
[2024-11-07 20:00] VITALS: BP 167/62; PULSE 70; RESP 18; TEMP 97.8; O2SAT 100
== END 2024-11-07 20:55 | DRG 698 ==
LOC: ER 20:57 → ERHOLD 10-31 00:43 → MED/SURG2 10-31 02:01
PROVIDERS: ADMIT Internal Medicine; ATTEND Internal Medicine
DX: T83.518A Infection and inflammatory reaction due to other urinary catheter, initial encounter (principal); G92.8 Other toxic encephalopathy; G93.41 Metabolic encephalopathy; I50.33 Acute on chronic diastolic (congestive) heart failure; N39.0 Urinary tract infection, site not specified; I13.0 Hypertensive heart and chronic kidney disease with heart failure and stage 1 through stage 4 chronic kidney disease, or unspecified chronic kidney disease; N17.9 Acute kidney failure, unspecified; E87.1 Hypo-osmolality and hyponatremia; M47.12 Other spondylosis with myelopathy, cervical region; E87.20 Acidosis, unspecified; J98.11 Atelectasis; N18.30 Chronic kidney disease, stage 3 unspecified; R31.29 Other microscopic hematuria; G62.89 Other specified polyneuropathies; R53.1 Weakness; D63.8 Anemia in other chronic diseases classified elsewhere; R62.7 Adult failure to thrive; Z68.23 Body mass index [BMI] 23.0-23.9, adult; N31.9 Neuromuscular dysfunction of bladder, unspecified; F03.90 Unspecified dementia, unspecified severity, without behavioral disturbance, psychotic disturbance, mood disturbance, and anxiety; E03.9 Hypothyroidism, unspecified; D50.9 Iron deficiency anemia, unspecified; Z96.0 Presence of urogenital implants; K21.9 Gastro-esophageal reflux disease without esophagitis; M25.532 Pain in left wrist; R53.81 Other malaise; M19.91 Primary osteoarthritis, unspecified site; R29.6 Repeated falls; Z91.81 History of falling; W19.XXXA Unspecified fall, initial encounter; Y92.009 Unspecified place in unspecified non-institutional (private) residence as the place of occurrence of the external cause; Y84.6 Urinary catheterization as the cause of abnormal reaction of the patient, or of later complication, without mention of misadventure at the time of the procedure; Z79.899 Other long term (current) drug therapy
CPT/HCPCS: 36415; 70450; 71045; 72125; 74176; 80048; 80053; 80307; 80320; 81001; 82550; 82728; 83540; 83880; 84466; 84484; 85025; 87086; 93005; 94799; 95812; 99252; 99284; J0360; J0696; J2270; J2405; J2470; J7030